=== PATIENT | female | born 1985 | race Caucasian/White ===

== ENCOUNTER 2018-07-04 15:34 | Emergency (ER) | payer OTHER, SELFPAY ==
[2018-07-04 15:36] VITALS: BP 133/83; PULSE 94; RESP 16; TEMP 36.8; O2SAT 100
--- NOTE | 2018-07-04 16:21 | ED_ITS ---
HPI - Fever General Chief Complaint: Fever Stated Complaint: STIFF NECK, FEVER Time Seen by Provider: 07/04/18 16:09 Source: patient Mode of arrival: ambulatory Limitations: no limitations History of Present Illness HPI Narrative: Patient is a 33-year-old female who presents with neck pain ongoing for 5 days. She went to the chiropractor yesterday her neck has improved today. She actually developed a low-grade fever of 100.3 today. She called her PCP and went to the walk-in clinic both were concerned for meningitis. She actually says that her neck feels much better she is afebrile here she has no rash. Her kids have been sick home. She is able congested but no other symptoms. She was sent to the ED for further evaluation. Related Data Allergies Allergy/AdvReac Type Severity Reaction Status Date / Time From AUGMENTIN Allergy Mild Uncoded 11/02/17 12:24 SULFA Allergy Mild Uncoded 11/02/17 12:24 Review of Systems Review of Systems All systems reviewed & are unremarkable except as noted in HPI and below Constitutional Reports fever(s) Eyes Denies change in vision, Denies eye discharge, Denies irritation and Denies loss of vision Cardiovascular Denies chest pain, Denies irregular heart rhythm, Denies lightheadedness, Denies palpitations, Denies dyspnea, Denies dyspnea on exertion and Denies orthopnea Respiratory Denies cough, Denies dyspnea, Denies dyspnea on exertion and Denies wheezing Gastrointestinal Gastrointestinal: Denies abdominal pain, Denies change in bowel habits, Denies diarrhea, Denies nausea and Denies vomiting Musculoskeletal Denies back pain, Denies muscle weakness, Denies numbness and Denies tingling Integumentary/Breasts Denies pruritus, Denies erythema, Denies rash and Denies wounds Neurologic Denies loss of vision, Denies numbness and Denies tingling Endocrine Denies palpitations Allergic/Immunologic Denies wheezing [facility] Medical History Healthy adult (Acute) Exam Initial Vital Signs Initial Vital Signs: Vital Signs Temperature 98.3 F 07/04/18 15:36 Pulse Rate 94 H 07/04/18 15:36 Respiratory Rate 16 07/04/18 15:36 Blood Pressure 133/83 07/04/18 15:36 Pulse Oximetry 100 07/04/18 15:36 GENERAL: Well-appearing, well-nourished and in no acute distress. HEENT: Head atraumatic,EOMI, pupils reactive, face symmetric, moist mucous membranes NECK: Full range of motion no lymphadenopathy no meningeal signs CARDIOVASCULAR: Regular rate and rhythm without murmurs, rubs or gallops. RESPIRATORY: Breath sounds equal bilaterally, no wheezes rales or rhonchi. ABDOMEN: Soft, nontender. Normoactive bowel sounds all 4 quadrants. No guarding or rebound. EXTREMITIES: Normal range of motion, no clubbing or edema. Neurovascularly intact NEUROLOGICAL: Alert and oriented x4.Normal gait and speech. Cranial nerves II through XII grossly intact. SKIN: Warm, dry, no laceration, no petechiae, no rashes or lesions. Course Vital Signs - 8 hr 07/04/18 15:36 Temperature 98.3 F Pulse Rate 94 H Respiratory Rate 16 Blood Pressure 133/83 Pulse Oximetry 100 MDM - Fever MDM Narrative Medical decision making narrative: Patient is sitting up in chair comfortable looking at phone. She is really has no signs of meningitis. She had neck pain prior to a fever multiple days prior to her fever. At this time I do not believe this is consistent with meningitis. I have discussed the only way to truly diagnose meningitis is a lumbar puncture. At this time she declines which I agree with I do not think it is indicated at this time. Discharge Plan Departure Patient Disposition: Home Clinical Impression: Acute upper respiratory infection Discharge Date/Time: 07/04/18 16:39 Interventions: ED Discharge Assessment Last Done: 07/04/18 16:38 Instructions: DI for Viral Syndrome Activity Restrictions/Additional Instructions: *You have been diagnosed with upper respiratory infection, viral send *What to do: At this time no signs or symptoms convincing for meningitis. No antibiotics indicated at this time *Continue to take medications as directed *Follow up with your primary care provider in 2-3 days *Return to ER if you should have worsening neck pain, persistent fever, rash or any new, worsening or concerning symptoms Referrals: Alverto Schwab MD [Primary Care Provider] - Hui Bolanos PA-C [Non-Staff] -
== END 2018-07-04 16:39 | disposition home or self-care (01) ==
PROVIDERS: Emergency Provider Emergency Medicine; Family Provider Family Medicine; PCP Family Medicine
DX: J06.9 Acute upper respiratory infection, unspecified (principal)
CPT/HCPCS: 99282

== ENCOUNTER → 2022-03-17 08:19 | Outpatient (CLI) | payer OTHER, SELFPAY ==
--- NOTE | 2022-03-17 08:21 | DI.RAD.S_ITS ---
PROCEDURE: XR ANKLE LT MIN 3V INDICATIONS: Possible gout TECHNIQUE: Three views of the ankle were acquired. COMPARISON: None. FINDINGS: Bones: Normal alignment. No displaced fracture. Ankle mortise is maintained. Soft tissues: No tibiotalar joint effusion. Achilles tendon appears normal. IMPRESSION: No acute radiographic abnormality. No high-grade arthrosis, or radiographically apparent erosions. Consider MRI if there is high concern for internal derangement. Dictated by: Alvarez Paul M.D. on 03/17/2022 at 11:30 Approved by: Alvarez Paul M.D. on 03/17/2022 at 11:32
[2022-03-17 09:28] LABS: Uric Acid 3.2 mg/dL (2.5-6.2)
== END ==
PROVIDERS: Family Provider Family Medicine; PCP Physician Assistant Medical; Referring Provider Nurse Practitioner Family; Visit Provider Nurse Practitioner Family
DX: M25.572 Pain in left ankle and joints of left foot (principal)
CPT/HCPCS: 36415; 73610; 84550